=== PATIENT | male | born 1945 | race Caucasian/White ===

== ENCOUNTER 2016-06-17 09:07 | Day surgery (SDC) | payer MEDICARE, OTHER ==
[2016-06-16 11:03] LABS: BLOOD UREA NITROGEN 11 mg/dL (7-18)
[~2016-06-17] VITALS: Ht 172.7 cm; Wt 95.0 kg
[~2016-06-17 09:07] MED LIST: AMOX1TAB64 PO; ASPI-496 PO; ASPI-515 PO; ATOR10TA9 PO; ATOR40TA78 PO; CETI10TA18 PO; CHOL20003 PO; GLIP-142 PO; LIRA0.6P SQ; METF500T PO; METF500T4 PO; METO25TA35 PO; OMEP-110 PO; SAW450CA2 PO; TADA5TAB2 PO; TAMS-11 PO; UBID100C11 PO; VALS40TA2 PO; VALS80TA3 PO; VERA120T74 PO
[2016-06-17] MEDS ORDERED: MIDAZOLAM 1 MG/ML, 5ML ONE (10:05)
[2016-06-17] MEDS ORDERED: NITROGLYCERIN 5 MG/ML, 10ML ONE (10:06)
[2016-06-17] MEDS ORDERED: FENTANYL PF 100 MCG/2ML ONE (10:06)
[2016-06-17] MEDS ORDERED: TICAGRELOR 90 MG TABLET ONE (10:06)
[2016-06-17] MEDS ORDERED: BIVALIRUDIN 250 MG ONE (10:06)
[2016-06-17] MEDS ORDERED: VERAPAMIL 2.5 MG/ML, 2ML ONE (10:06)
[2016-06-17] MEDS ORDERED: LIDOCAINE 2%, 20ML ONE (10:07)
[2016-06-17] MEDS ORDERED: HEPARIN 1,000 UNITS/ML, 10ML ONE (10:07)
[2016-06-17] MEDS ORDERED: SODIUM CHLORIDE 0.9% 500 ML IV SCH (11:30)
[2016-06-17] MEDS ORDERED: ATOR80TA75 PO (11:34)
== END 2016-06-17 13:40 | disposition home or self-care (01) ==
LOC: CACL 09:07
PROVIDERS: ATTEND Internal Medicine Cardiovascular Disease
DX: I25.10 Atherosclerotic heart disease of native coronary artery without angina pectoris (principal); I10 Essential (primary) hypertension; E11.9 Type 2 diabetes mellitus without complications; E78.2 Mixed hyperlipidemia; Z87.891 Personal history of nicotine dependence; Z79.01 Long term (current) use of anticoagulants
CPT/HCPCS: 36415; 71020; 80048; 85025; 85610; 85730; 93005; 93454; C1894; J1644; J2250; J3010; J3490; Q9967; 93458; J0583

== ENCOUNTER → 2016-06-20 | Outpatient (CLI) | payer MEDICARE, OTHER ==
[~2016-06-20] MED LIST changes: +ATOR80TA75 PO
== END | disposition home or self-care (01) ==
LOC: CFH 12:23
PROVIDERS: ATTEND Internal Medicine Cardiovascular Disease
DX: I67.82 Cerebral ischemia (principal); R90.82 White matter disease, unspecified; J34.1 Cyst and mucocele of nose and nasal sinus; J34.89 Other specified disorders of nose and nasal sinuses
CPT/HCPCS: 70450

== ENCOUNTER 2016-10-12 19:21 | Emergency (ER) | payer MEDICARE, OTHER ==
[~2016-10-12] VITALS: Ht 172.7 cm; Wt 98.2 kg
[~2016-10-12 19:21] MED LIST changes: +CHOL2000 PO; -CHOL20003 PO
[2016-10-12] MEDS ORDERED: SODIUM CHLORIDE FLUSH 10ML SYR IVF ONE (20:00)
[2016-10-12] MEDS ORDERED: SODIUM CHLORIDE 0.9% 1,000ML IVBOLUS ONE (20:00)
[2016-10-12 20:17] LABS: HEMATOCRIT 47.2 % (39.2-51.8); HEMOGLOBIN 15.5 g/dL (13.7-18.0); WHITE BLOOD COUNT 7.8 x10^3/uL (3.4-10)
[2016-10-12 20:27] LABS: BLOOD UREA NITROGEN 11 mg/dL (7-18)
[2016-10-12 20:33] LABS: IS PT STATUS REG ER OR PRE ER? YES
[2016-10-12 21:21] LABS: PATH.CAST-FLAG NOT PRESENT; SPERM-FLAG NOT PRESENT; SRC-FLAG NOT PRESENT; XTAL-FLAG NOT PRESENT; YLC-FLAG NOT PRESENT
[2016-10-12 21:50] VITALS: BP 174/92
== END 2016-10-12 22:38 | disposition home or self-care (01) ==
LOC: ED 21:50
DX: B34.9 Viral infection, unspecified (principal); I25.2 Old myocardial infarction; E78.5 Hyperlipidemia, unspecified; I10 Essential (primary) hypertension; E11.9 Type 2 diabetes mellitus without complications; N40.0 Benign prostatic hyperplasia without lower urinary tract symptoms; Z86.73 Personal history of transient ischemic attack (TIA), and cerebral infarction without residual deficits; Z87.891 Personal history of nicotine dependence
CPT/HCPCS: 36415; 71010; 80048; 81001; 82040; 84484; 85025; 93005; 96360; 99285; J7030

== ENCOUNTER → 2018-12-30 | Outpatient (CLI) | payer MEDICARE, OTHER ==
[~2018-12-30] MED LIST changes: +ATOR-2 PO; -ATOR80TA75 PO; +METF500T17 PO; -METF500T4 PO; -SAW450CA2 PO; +SAW450CA7 PO; -UBID100C11 PO; +UBID100C41 PO; -VERA120T74 PO; +VERA120T8 PO
== END | disposition home or self-care (01) ==
LOC: CVU 09:30
PROVIDERS: ATTEND Internal Medicine Cardiovascular Disease
DX: I08.0 Rheumatic disorders of both mitral and aortic valves (principal); I65.23 Occlusion and stenosis of bilateral carotid arteries; I10 Essential (primary) hypertension; E11.9 Type 2 diabetes mellitus without complications; E78.2 Mixed hyperlipidemia; I25.10 Atherosclerotic heart disease of native coronary artery without angina pectoris; Z87.891 Personal history of nicotine dependence
CPT/HCPCS: 93306; 93880

== ENCOUNTER → 2020-08-24 | Outpatient (CLI) | payer MEDICARE, OTHER ==
[~2020-08-24] MED LIST changes: -ASPI-515 PO; +ASPI-963 PO; +REGADENOSON 0.4 MG/5 ML SYRINGE ONE
== END | disposition home or self-care (01) ==
LOC: CFH 08:00
PROVIDERS: ATTEND Internal Medicine Cardiovascular Disease
DX: I25.10 Atherosclerotic heart disease of native coronary artery without angina pectoris (principal); I10 Essential (primary) hypertension; Z87.19 Personal history of other diseases of the digestive system
CPT/HCPCS: 78452; 93017; A9502; J2785